=== PATIENT | male | born 1950 | race Caucasian/White ===

== ENCOUNTER 2022-06-04 07:48 | Day surgery (SDC) | payer MEDICARE ==
[~2022-06-04] VITALS: Ht 175.3 cm; Wt 65.9 kg
[2022-06-04 08:00] VITALS: BP 144/74
[2022-06-04] MEDS ORDERED: ELUX75TA (08:13)
[2022-06-04] MEDS ORDERED: DICL-211 PO (08:13)
[2022-06-04] MEDS ORDERED: AMLO5TAB16 PO (08:13)
[2022-06-04] MEDS ORDERED: RAMI10CA69 (08:13)
[2022-06-04] MEDS ORDERED: fentaNYL/PF 50MCG/1 ML 2ML syringe ONE (08:26)
[2022-06-04] MEDS ORDERED: MIDAZolam 1 MG/ML 5ML VIAL ONE (08:26)
[2022-06-04 09:45] VITALS: BP 129/81
[2022-06-04 09:55] VITALS: BP 126/72
[2022-06-04 10:05] VITALS: BP 132/73
[2022-06-04 10:15] VITALS: BP 137/82
== END 2022-06-04 10:30 | disposition home or self-care (01) ==
LOC: GI LAB 07:48
PROVIDERS: ATTEND Internal Medicine Gastroenterology
DX: K52.9 Noninfective gastroenteritis and colitis, unspecified (principal); K57.30 Diverticulosis of large intestine without perforation or abscess without bleeding; K64.1 Second degree hemorrhoids; Z80.0 Family history of malignant neoplasm of digestive organs; Z79.899 Other long term (current) drug therapy; Z98.890 Other specified postprocedural states
CPT/HCPCS: 45380; G0500; J2250; J3010; J7030; Z7512; 88305; 88313; 99152; 99153; A4620